=== PATIENT | male | born 1975 | race Caucasian/White ===

== ENCOUNTER 2016-11-07 13:24 | Emergency (ER) | payer OTHER ==
[~2016-11-07] VITALS: Ht 177.8 cm; Wt 70.0 kg
[~2016-11-07 13:24] MED LIST: DICLOFENAC SODI50 MG PO; NEXIUM20 MG PO; PERCOCET 5/31 TABLET PO; PRILOSEC20 MG PO; PROZAC20 M1 PO; QUETIAPINE FUMA50 MG PO; RANITIDINE HCL150 MG PO; TRAMADOL HCL50 MG PO; VENLAFAXINE HC150 M1 PO; VITAMIN B 6
[2016-11-07 14:08] LABS: EOSINOPHIL (%) 3.1 % (0-5); EOSINOPHIL COUNT 0.2 K/uL (0-0.3); HEMATOCRIT 38.3 % (38.0-50.0); IMMATURE GRANULOCYTE (%) 0.1 % (0.0-0.7); IMMATURE GRANULOCYTE COUNT 0.1 K/uL; LYMPHOCYTE COUNT 1.7 K/uL (1.0-2.8); MCHC 35.5 G/DL (30.0-36.0); MCV 87.2 FL (86-99); MEAN PLAT.VOLUME 9.4 uM^3 (9.0-12.4); MONOCYTE (%) 11.6 % (3-12); MONOCYTE COUNT 0.8 K/uL (0-0.8); NEUTROPHIL (%) 60.6 % (45-76); NEUTROPHIL COUNT 4.3 K/uL (1.8-6.4); PLATELET COUNT 362 K/uL (156-360); RBC DIS.WIDTH-SD 37.7 % (39-53); RED BLOOD COUNT 4.39 M/uL (4.00-5.50); WHITE BLOOD COUNT 7.2 K/uL (4.1-10.2)
[2016-11-07 14:17] LABS: CHLORIDE 101 mEq/L (99-109); POTASSIUM 4.2 mEq/L (3.7-5.4); SODIUM 137 mEq/L (136-147)
[2016-11-07 14:19] LABS: GLUCOSE 84 mg/dL (70-99)
[2016-11-07 14:20] LABS: ANION GAP 12 MEQ/L (2-14)
[2016-11-07 14:21] LABS: TOTAL BILIRUBIN 0.4 mg/dL (0.0-1.0)
[2016-11-07 14:22] LABS: ALKALINE PHOSPHATASE 79 IU/L (3-129); D-DIMER ELISA 0.25 mg/L FEU (< 0.57)
[2016-11-07 14:23] LABS: GFR ESTIMATE (CALCULATED) > 59 mL/min/
[2016-11-07 14:24] LABS: UREA NITROGEN (BUN) 21 mg/dL (9-23)
[2016-11-07 14:26] LABS: CREATINE KINASE 342 IU/L (1-294); TOTAL CK 342 IU/L (1-294); TROP-I INTERPRETATION NEGATIVE; TROPONIN-I < 0.01 ng/mL (0.0-0.30)
[2016-11-07 14:33] LABS: CK-MB 3.1 ng/mL (0.0-4.9)
[2016-11-07 16:58] VITALS: BP 138/93
== END 2016-11-07 17:01 | disposition home or self-care (01) ==
LOC: EME 13:24
PROVIDERS: Emergency Medicine
DX: R55 Syncope and collapse (principal); F17.200 Nicotine dependence, unspecified, uncomplicated; Z88.2 Allergy status to sulfonamides; Z91.041 Radiographic dye allergy status
CPT/HCPCS: 70450; 71020; 80053; 81003; 82550; 82553; 84484; 85025; 85379; 93005; 99281; 99285; J7030